=== PATIENT | female | born 1955 | race Caucasian/White ===

== ENCOUNTER 2017-01-14 08:15 | Emergency (ER) | payer MEDICARE, OTHER ==
[2017-01-14] MEDS ORDERED: Ondansetron 4 MG/2 ML SDV IVPUSH ONE (08:33)
[2017-01-14] MEDS ORDERED: Ondansetron 4 MG/2 ML SDV ONE (08:36)
--- NOTE | 2017-01-14 08:45 | EDM.PDOC ---
[id number] 4d dizzy Time Seen by Provider: 01/14/17 08:38 Source: Reports: Patient, EMS History Limitations: Reports: Other (Some mild confusion and amnesia of the [id number]) - History of Present Illness INITIAL COMMENTS - FREE TEXT/NARRATIVE: 61-year-old female with a previous history of CVA and also a hypercoagulable disorder has experienced a period of confusion and amnesia this morning along with weakness and syncope. It started when she was driving she felt lightheaded and "off", she then went into a restaurant and was in the bathroom and felt like she was going to faint and needed to lay down. She then remembers being attended to in the restaurant and EMS arriving. She now feels a little uncomfortable, she had some nausea on arrival but that has resolved after Zofran. She was initially hypertensive but that has normalized. Location (Neuro Complaint): Reports: generalized Quality (Neuro Complaint): Reports: weakness, other (Amnesia, syncope) Severity: moderate Associated symptoms: Reports: malaise, nausea/vomiting. Denies: headaches, shortness of breath, fever/chills - Related Data Allergies/ADRs: Allergies Allergy/AdvReac Type Severity Reaction Status Date / Time amlodipine Allergy Unknown Redness Verified 01/08/14 10:06 fenofibrate Allergy Unknown Cannot Verified 01/08/14 10:06 Remember losartan [Losartan] Allergy Unknown Redness Verified 01/08/14 10:06 nifedipine Allergy Unknown Redness Verified 01/08/14 10:06 simvastatin Allergy Unknown Redness Verified 01/08/14 10:06 Sulfa (Sulfonamide Allergy Unknown Redness Verified 01/08/14 10:06 Antibiotics) Home Meds: Home Meds Albuterol [Ventolin HFA] 2 puff INH Q4H PRN 05/24/13 [History] Allopurinol [Zyloprim] 100 mg PO DAILY 05/24/13 [History] Aspirin/Calcium Carbonate/Mag [Aspirin Buffered 325 mg Tab] 325 mg PO DAILY 08/24 [History] Calcium Carbonate/Vitamin D3 [Caltrate 600 + D] 1 tab PO BID 05/24/13 [History] Cyanocobalamin (Vitamin B-12) [Cyanocobalamin Injection] 1,000 mcg IM ASDIRECTED 05/24/13 [History] Hydrochlorothiazide 25 mg PO DAILY 05/24/13 [History] Levothyroxine 175 mcg PO DAILY 05/24/13 [History] Liothyronine [Cytomel] 10 mcg PO DAILY 05/24/13 [History] Loratadine [Claritin] 10 mg PO DAILY 05/24/13 [History] Metoprolol Tartrate [Lopressor] 100 mg PO BID 05/24/13 [History] Multivitamin [Multi-Vitamin Daily] 1 each PO DAILY 05/24/13 [History] Omeprazole Magnesium [Prilosec Otc] 20 mg PO DAILY 05/24/13 [History] Potassium Chloride 10 meq PO DAILY 05/24/13 [History] Warfarin Sodium [Jantoven] 5 mg PO ASDIRECTED 05/24/13 [History] atorvaSTATin [Lipitor] 40 mg PO DAILY 05/24/13 [History] metFORMIN [Glucophage] 200 mg PO BID 05/24/13 [History] Baclofen [Baclofen] 20 mg PO BEDTIME 02/01/16 [History] Liraglutide [Victoza] 1.8 ml SQ BID 02/01/16 [History] Past Medical History Cardiovascular History: Reports: Hypertension, Other (see below) Other Cardiovascular History: a heart skips beats Neurological History: Reports: CVA Endocrine/Metabolic History: Reports: Diabetes, type I, Diabetes, type II, Hypothyroidism Hematologic History: Reports: Anemia Oncologic (Cancer) History: Reports: Thyroid - Past Surgical History GI Surgical History: Reports: Bariatric procedure, Cholecystectomy Endocrine Surgical History: Reports: Thyroidectomy Social & Family History - Tobacco Use Years of Tobacco use: 2 Used Tobacco, but Quit: Yes Month Tobacco Last Used: 1976 Second Hand Smoke Exposure: No - Alcohol Use Days Per Week of Alcohol Use: 0 - Recreational Drug Use Recreational Drug Use: No ED ROS GENERAL - Review of Systems Review Of Systems: See Below Constitutional: Reports: malaise, weakness. Denies: fever, chills HEENT: Reports: No symptoms Respiratory: Denies: Shortness of Breath, Cough Cardiovascular: Denies: Chest pain GI/Abdominal: Reports: Nausea, Vomiting. Denies: Abdominal pain : Reports: no symptoms Skin: Reports: pallor Neurological: Reports: Dizziness. Denies: Headache Psychiatric: Reports: No symptoms ED EXAM, NEURO - Physical Exam Exam: See Below Exam Limited By: No limitations General Appearance: alert, no apparent distress Eye Exam: bilateral eye: EOMI, PERRL Head Exam: atraumatic Neck: non-tender Respiratory/Chest: no respiratory distress, lungs clear Cardiovascular: regular rate, rhythm GI/Abdominal: soft, non tender Neurological: alert, no motor/sensory deficits, other (Initially somewhat confused but was baseline normal within 10-20 minute) Extremities: No: pedal edema Psychiatric: No: anxious Skin Exam: Warm, Dry Course - Vital Signs Last Recorded V/S: Last Vital Signs Temp 97.9 F 01/14/17 08:25 Pulse 96 01/14/17 09:10 Resp 20 01/14/17 08:59 BP 165/87 H 01/14/17 09:10 Pulse Ox 97 01/14/17 08:59 - Orders/Labs/Meds Labs: Laboratory Tests 01/14/17 01/14/17 Range/Units 09:01 09:01 WBC 7.0 (4.5-11.0) K/uL RBC 4.99 (3.30-5.50) M/uL Hgb 14.4 (12.0-15.0) g/dL Hct 40.3 (36.0-48.0) % MCV 81 (80-98) fL MCH 29 (27-31) pg MCHC 36 (32-36) % Plt Count 248 (150-400) K/uL Neut % (Auto) 63 (36-66) % Lymph % (Auto) 27 (24-44) % [place] % (Auto) 6 (2-6) % Eos % (Auto) 4 (2-4) % Baso % (Auto) 0 (0-1) % Sodium 133 L (140-148) mmol/L Potassium 3.6 (3.6-5.2) mmol/L Chloride 96 L (100-108) mmol/L Carbon Dioxide 26 (21-32) mmol/L Anion Gap 14.6 H (5.0-14.0) mmol/L BUN 11 (7-18) mg/dL Creatinine 0.7 (0.6-1.0) mg/dL Est Cr Clr Drug Dosing 71.58 mL/min Estimated GFR (MDRD) > 60 (>60) Glucose 187 H (74-106) mg/dL Calcium 7.9 L (8.5-10.1) mg/dL Magnesium 1.5 L (1.8-2.4) mg/dL Total Bilirubin 0.8 (0.2-1.0) mg/dL AST 34 (15-37) U/L ALT 79 H (12-78) U/L Alkaline Phosphatase 98 (46-116) U/L Total Protein 7.0 (6.4-8.2) g/dL Albumin 3.5 (3.4-5.0) g/dL Globulin 3.5 (2.3-3.5) g/dL Albumin/Globulin Ratio 1.0 L (1.2-2.2) Meds: Medications Discontinued Medications Generic Name Dose Route Start Last Admin Trade Name Jesusq PRN Reason Stop Dose Admin Metoprolol Tartrate 100 mg 01/14/17 09:04 01/14/17 09:10 Lopressor PO 01/14/17 09:05 100 mg ONETIME ONE Administration Ondansetron HCl 4 mg 01/14/17 08:33 01/14/17 08:44 Zofran IVPUSH 01/14/17 08:34 4 mg ONETIME ONE Administration Ondansetron HCl Confirm 01/14/17 08:36 01/14/17 08:44 Zofran Administered 01/14/17 08:37 Not Given Dose 4 mg .ROUTE .STK-MED ONE - Re-Assessments/Exams Free Text/Narrative Re-Assessment/Exam: 01/14/17 09:[address] of the head without contrast was done which was stable from previous. Patient was monitored for one hour while a CBC magnesium and CMP were obtained. Her magnesium was 1.5 consistent with previous levels. She was given her 100 mg metoprolol dose which she missed this morning. She was then ambulated. 01/14/17 10:03 Patient ambulated without problem. She'll be discharged and will return if symptoms recur or she has other concerns. Departure - Departure Time of Disposition: 10:26 Disposition: Home, Self-Care 01 Condition: good Clinical Impression: Confusion Syncope Qualifiers: Syncope type: unspecified Qualified Code(s): R55 - Syncope and collapse Instructions: Confusion, Near-Syncope, [id number] Referrals: PCP,None [Primary Care Provider] - Forms: ED Department Discharge Care Plan Goals: Continue your current medications, return if symptoms recur you have other concerns.
--- NOTE | 2017-01-14 09:03 | CT ---
Head wo Cont INDICATION: Possible stroke. Dose: Total DLP 753. FINDINGS: No acute intracranial hemorrhage, mass, or edema. Visualized portions of the paranasal sin uses and mastoid air cells are clear. Old lacunar infarct left basal ganglia unchanged from MRI scan 08/24/2016. Soft tissues are negative. IMPRESSION: Negative head CT.
[2017-01-14] MEDS ORDERED: Metoprolol Tartrate 50 MG Tab PO ONE (09:04)
[2017-01-14 09:11] VITALS: BP 165/87
== END 2017-01-14 10:15 | disposition home or self-care (01) ==
LOC: JP.ED 08:15
DX: R41.0 Disorientation, unspecified (principal); R55 Syncope and collapse; E11.9 Type 2 diabetes mellitus without complications; E10.9 Type 1 diabetes mellitus without complications; E03.9 Hypothyroidism, unspecified; Z79.899 Other long term (current) drug therapy; Z87.891 Personal history of nicotine dependence; Z79.84 Long term (current) use of oral hypoglycemic drugs; Z79.82 Long term (current) use of aspirin; Z88.2 Allergy status to sulfonamides; Z88.8 Allergy status to other drugs, medicaments and biological substances
CPT/HCPCS: 36415; 70450; 80053; 83735; 85025; 96374; 99284; A9270; J2405

== ENCOUNTER 2019-01-04 07:53 | Emergency (ER) | payer MEDICARE, OTHER ==
--- NOTE | 2019-01-04 08:14 | EDM.PDOC ---
ED HPI GENERAL MEDICAL PROBLEM - General Chief Complaint: Chest Pain Stated Complaint: CHEST PAIN DURING THE NIGHT Time Seen by Provider: 01/04/19 08:25 Source of Information: Reports: Patient, Old Records, RN History Limitations: Reports: No Limitations - History of Present Illness INITIAL COMMENTS - FREE TEXT/NARRATIVE: 63 yo female with no hx of CAD presents with L sided chest pain that began in the night last night. By the time she got up this morning the pain was reduced. She describes mild nausea with the pain, but now diaphoresis. Pain last night radiated to her back. The only morning med should took today was her insulin. She reports an INR from 2 d ago of 1.8. She has had a couple of angiograms in the past that showed some valvular dz, but no coronary dz. She smoked socially in her 20's but not since. She does have AODM. There has been no cough or calf pain/swelling. She does not have NTG at home. She did take her ASA last night before bed. Her BP normally runs in the 130's systolic. Onset: Today Onset Date: 01/04/19 Onset Time: 03:00 Duration: Hour(s):, Improving Location: Reports: Chest, Back (not now, but last night) Quality: Reports: Pressure Severity: Mild (worse in the night) Improves with: Reports: Other (? time) Worsens with: Reports: None Context: Reports: Other (See HPI) Associated Symptoms: Reports: Chest Pain, Nausea/Vomiting (no vomiting). Denies : Cough, Diaphoresis, Fever/Chills, Shortness of Breath, Syncope Treatments TABLE HAND: Reports: Insulin Anterior Chest Pain Score (Numeric/FACES): 2 - Related Data Allergies Allergy/AdvReac Type Severity Reaction Status Date / Time amlodipine Allergy Unknown Redness Verified 01/04/19 08:06 fenofibrate Allergy Unknown Cannot Verified 01/04/19 08:06 Remember losartan [Losartan] Allergy Unknown Redness Verified 01/04/19 08:06 nifedipine Allergy Unknown Redness Verified 01/04/19 08:06 simvastatin Allergy Unknown Redness Verified 01/04/19 08:06 Sulfa (Sulfonamide Allergy Unknown Redness Verified 01/04/19 08:06 Antibiotics) Home Meds: Home Meds Albuterol [Ventolin HFA] 2 puff INH Q4H PRN 05/24/13 [History] Allopurinol [Zyloprim] 100 mg PO DAILY 05/24/13 [History] Calcium Carbonate/Vitamin D3 [Caltrate 600 + D] 1 tab PO BID 05/24/13 [History] Cyanocobalamin (Vitamin B-12) [Cyanocobalamin Injection] 1,000 mcg IM ASDIRECTED 05/24/13 [History] Liothyronine [Cytomel] 10 mcg PO DAILY 05/24/13 [History] Multivitamin [Multi-Vitamin Daily] 1 each PO DAILY 05/24/13 [History] Omeprazole Magnesium [Prilosec Otc] 20 mg PO DAILY 05/24/13 [History] Warfarin Sodium [Jantoven] 5 mg PO ASDIRECTED 05/24/13 [History] Baclofen 10 mg PO BEDTIME 02/01/16 [History] FLUoxetine HCl [Prozac] 20 mg PO DAILY 12/21/18 [History] Fluticasone Propionate [Flonase Allergy Relief] 2 sprays NS DAILY PRN 12/21/18 [ History] Insulin Glargine,Hum.Rec.Anlog [Basaglar Kwikpen U-100] 30 unit SQ QAM 12/21/18 [History] Levothyroxine [Synthroid] 100 mcg PO ACBREAKFAST 12/21/18 [History] Magnesium Oxide [Magnesium] 400 mg PO BID 12/21/18 [History] Metoprolol Succinate [Toprol XL 50mg] 50 mg PO DAILY 12/21/18 [History] Montelukast [Singulair] 10 mg PO BEDTIME 12/21/18 [History] SUMAtriptan [Imitrex] 25 mg PO ASDIRECTED 12/21/18 [History] cloNIDine [Catapres-TTS 1] 1 patch TD Q7D 12/21/18 [History] metFORMIN [Glucophage] 1,000 mg PO BIDMEALS 12/21/18 [History] traZODone HCl [Trazodone HCl] 50 mg PO BEDTIME 12/21/18 [History] Aspirin 325 mg PO BEDTIME 01/04/19 [History] Past Medical History HEENT History: Reports: Allergic Rhinitis Cardiovascular History: Reports: Hypertension, Other (See Below) Other Cardiovascular History: a heart skips beats Respiratory History: Reports: Asthma Gastrointestinal History: Reports: GERD, Hemorrhoids [employer] History: Reports: Dysfunctional Uterine Bleeding, Fibroids, , Spontaneous Neurological History: Reports: CVA Psychiatric History: Reports: Anxiety, Panic Attack Endocrine/Metabolic History: Reports: Diabetes, Type I, Diabetes, Type II, Hypothyroidism Hematologic History: Reports: Anemia Oncologic (Cancer) History: Reports: Thyroid - Past Surgical History GI Surgical History: Reports: Bariatric Procedure, Cholecystectomy Female Surgical History: Reports: Section, Hysterectomy ED ROS GENERAL - Review of Systems Review Of Systems: See Below Constitutional: Reports: No Symptoms. Denies: Fever, Diaphoresis HEENT: Reports: No Symptoms Respiratory: Denies: Shortness of Breath, Wheezing, Pleuritic Chest Pain, Cough , Sputum, Hemoptysis Cardiovascular: Reports: Chest Pain, Blood Pressure Problem, Lightheadedness ( when she stood up this morning to get out of bed.). Denies: Dyspnea on Exertion , Edema, Orthopnea, Palpitations, PND, Syncope Endocrine: Reports: No Symptoms GI/Abdominal: Reports: Nausea. Denies: Abdominal Pain, Black Stool, Bloody Stool, Constipation, Diarrhea, Distension, Flatus, Hematemesis, Hematochezia, Melena, Vomiting : Reports: No Symptoms Musculoskeletal: Reports: No Symptoms Skin: Reports: No Symptoms Neurological: Reports: No Symptoms Psychiatric: Reports: No Symptoms ED EXAM, GENERAL - Physical Exam Exam: See Below Exam Limited By: No Limitations General Appearance: Alert, WD/WN, No Apparent Distress Eye Exam: Bilateral Eye: Normal Inspection Ears: Normal External Exam, Normal Canal, Hearing Grossly Normal, Normal TMs Ear Exam: Bilateral Ear: Auricle Normal, Canal Normal, TM normal Nose: Normal Inspection, Normal Mucosa, No Blood Throat/Mouth: Normal Inspection, Normal Lips, Normal Oropharynx, Normal Voice, No Airway Compromise Head: Atraumatic, Normocephalic Neck: Normal Inspection Respiratory/Chest: No Respiratory Distress, Lungs Clear, Normal Breath Sounds, No Accessory Muscle Use, Chest Non-Tender Cardiovascular: Regular Rate, Rhythm, No Edema, Systolic Murmur GI/Abdominal: Normal Bowel Sounds, Soft, Non-Tender, No Distention Back Exam: Normal Inspection. No: CVA Tenderness (R), CVA Tenderness (L) Extremities: Normal Inspection, Normal Range of Motion, Non-Tender, No Pedal Edema Neurological: Alert, Oriented, CN II-XII Intact, Normal Cognition, No Motor/ Sensory Deficits Psychiatric: Normal Affect, Normal Mood Skin Exam: Warm, Dry, Intact, Normal Color, No Rash Lymphatic: No Adenopathy EKG INTERPRETATION EKG Date: 01/04/19 Time: 08:00 Rhythm: NSR Rate (Beats/Min): 58 [place]: Normal P-Wave: Present QRS: Normal ST-T: Normal QT: Normal Comparison: Change From Previous EKG (There has been a significant heart rate decrease, no other significant change noted.) Course - Vital Signs Text/Narrative:: Pain gone during her ER visit. Has an appt with Dr. Lyons for 10:30 am today, will try to get her to this appt. Last Recorded V/S: Last Vital Signs Temp 35.8 C 01/04/19 08:05 Pulse 49 L 01/04/19 09:20 Resp 16 01/04/19 09:20 BP 200/73 H 01/04/19 09:20 Pulse Ox 96 01/04/19 09:20 - Orders/Labs/Meds Orders: Active Orders 24 hr Category Date Time Status Cardiac Monitoring [RC] .As Directed Care 01/04/19 08:09 Active EKG Documentation Completion [RC] ASDIRECTED Care 01/04/19 08:09 Active UA W/MICROSCOPIC [URIN] Stat Lab 01/04/19 08:26 Ordered Lisinopril [Prinivil] Med 01/04/19 09:29 Once 20 mg PO ONETIME ONE Sodium Chloride 0.9% [Saline Flush] Med 01/04/19 09:27 Active 10 ml FLUSH ASDIRECTED PRN Saline Lock Insert [OM.PC] Routine Oth 01/04/19 09:27 Ordered EKG 12 Lead [EK] Routine Ther 01/04/19 08:09 Ordered Medication Orders Sodium Chloride (Saline Flush) 10 ml FLUSH ASDIRECTED PRN PRN Reason: Keep Vein Open Labs: Laboratory Tests 01/04/19 01/04/19 01/04/19 Range/Units 08:05 08:05 08:05 WBC 7.6 (4.5-11.0) K/uL RBC 4.74 (3.30-5.50) M/uL Hgb 13.9 (12.0-15.0) g/dL Hct 41.7 (36.0-48.0) % MCV 88 (80-98) fL MCH 29 (27-31) pg MCHC 33 (32-36) % Plt Count 268 (150-400) K/uL PT 17.8 H (9.5-12.0) sec INR 1.67 H (0.80-1.20) Sodium 141 (140-148) mmol/L Potassium 3.3 L (3.6-5.2) mmol/L Chloride 102 (100-108) mmol/L Carbon Dioxide 27 (21-32) mmol/L Anion Gap 15.3 H (5.0-14.0) mmol/L BUN 12 (7-18) mg/dL Creatinine 0.8 (0.6-1.0) mg/dL Est Cr Clr Drug Dosing TNP Estimated GFR (MDRD) > 60 (>60) Glucose 86 (74-106) mg/dL Calcium 8.8 (8.5-10.1) mg/dL Magnesium (1.8-2.4) mg/dL Troponin I < 0.017 (0.000-0.056) ng/mL 01/04/19 Range/Units 08:45 WBC (4.5-11.0) K/uL RBC (3.30-5.50) M/uL Hgb (12.0-15.0) g/dL Hct (36.0-48.0) % MCV (80-98) fL MCH (27-31) pg MCHC (32-36) % Plt Count (150-400) K/uL PT (9.5-12.0) sec INR (0.80-1.20) Sodium (140-148) mmol/L Potassium (3.6-5.2) mmol/L Chloride (100-108) mmol/L Carbon Dioxide (21-32) mmol/L Anion Gap (5.0-14.0) mmol/L BUN (7-18) mg/dL Creatinine (0.6-1.0) mg/dL Est Cr Clr Drug Dosing Estimated GFR (MDRD) (>60) Glucose (74-106) mg/dL Calcium (8.5-10.1) mg/dL Magnesium 1.8 (1.8-2.4) mg/dL Troponin I (0.000-0.056) ng/mL Meds: Medications Generic Name Dose Route Start Last Admin Trade Name Freq PRN Reason Stop Dose Admin Sodium Chloride 10 ml 01/04/19 09:27 Saline Flush FLUSH ASDIRECTED PRN Keep Vein Open Discontinued Medications Generic Name Dose Route Start Last Admin Trade Name Jesusq PRN Reason Stop Dose Admin Metoprolol Succinate 50 mg 01/04/19 08:27 01/04/19 08:33 Toprol Xl PO 01/04/19 08:28 50 mg ONETIME ONE Administration Ondansetron HCl 4 mg 01/04/19 08:41 01/04/19 08:45 Zofran Odt PO 01/04/19 08:42 4 mg ONETIME ONE Administration Potassium Chloride 40 meq 01/04/19 08:45 01/04/19 09:14 Potassium Chloride PO 01/04/19 08:46 40 meq ONETIME ONE Administration Warfarin Sodium 7.5 mg 01/04/19 08:57 01/04/19 09:14 Coumadin PO 01/04/19 08:58 7.5 mg ONETIME ONE Administration Departure - Departure Time of Disposition: 09:35 Disposition: Home, Self-Care 01 Condition: Fair Clinical Impression: Nonspecific chest pain, Hypokalemia HTN (hypertension) Qualifiers: Hypertension type: unspecified Qualified Code(s): I10 - Essential (primary) hypertension Instructions: Nonspecific Chest Pain, [id number], Hypokalemia, Managing Your Hypertension Referrals: Amy Lyons MD [Primary Care Provider] - Forms: ED Department Discharge Additional Instructions: Discuss adding an ACEI or an ARB to your current medications for improved BP control and to reduce the damage of diabetes to your kidneys. Avoid salt. Eat more fresh fruits to boost your potassium level. Keep your appt with your doctor for later this morning. Return as needed. - My Orders Last 24 Hours: My Active Orders 01/04/19 08:09 Cardiac Monitoring [RC] .As Directed EKG Documentation Completion [RC] ASDIRECTED EKG 12 Lead [EK] Routine 01/04/19 08:26 UA W/MICROSCOPIC [URIN] Stat 01/04/19 09:27 Sodium Chloride 0.9% [Saline Flush] 10 ml FLUSH ASDIRECTED PRN Saline Lock Insert [OM.PC] Routine 01/04/19 09:29 Lisinopril [Prinivil] 20 mg PO ONETIME ONE - Assessment/Plan Last 24 Hours: My Active Orders 01/04/19 08:09 Cardiac Monitoring [RC] .As Directed EKG Documentation Completion [RC] ASDIRECTED EKG 12 Lead [EK] Routine 01/04/19 08:26 UA W/MICROSCOPIC [URIN] Stat 01/04/19 09:27 Sodium Chloride 0.9% [Saline Flush] 10 ml FLUSH ASDIRECTED PRN Saline Lock Insert [OM.PC] Routine 01/04/19 09:29 Lisinopril [Prinivil] 20 mg PO ONETIME ONE
[2019-01-04] MEDS ORDERED: Metoprolol Succinate 50 MG Tab.ER PO ONE (08:27)
[2019-01-04] MEDS ORDERED: Ondansetron 4 MG Tab.DIS PO ONE (08:41)
[2019-01-04] MEDS ORDERED: Potassium Chloride 10 MEQ Cap.ER PO ONE (08:45)
[2019-01-04] MEDS ORDERED: Warfarin 2.5 MG Tab PO ONE (08:57)
[2019-01-04 09:27] VITALS: BP 200/73
[2019-01-04] MEDS ORDERED: Sodium Chloride 0.9% 10 ML Syringe FLUSH PRN (09:27)
[2019-01-04] MEDS ORDERED: Lisinopril 10 MG Tab PO ONE (09:29)
== END 2019-01-04 09:45 | disposition home or self-care (01) ==
LOC: JP.ED 07:53
DX: I10 Essential (primary) hypertension (principal); E87.6 Hypokalemia; K21.9 Gastro-esophageal reflux disease without esophagitis; E13.9 Other specified diabetes mellitus without complications; Z79.899 Other long term (current) drug therapy; Z79.84 Long term (current) use of oral hypoglycemic drugs; Z88.8 Allergy status to other drugs, medicaments and biological substances
CPT/HCPCS: 36415; 80048; 83735; 84484; 85027; 85610; 93005; 99285; A9270; 99284